=== PATIENT | male | born 1975 | race Native Hawaiian/Other Pacific Islander ===

== ENCOUNTER 2020-11-13 11:51 | Outpatient (CLI) | payer BC, OTHER ==
[~2020-11-13] VITALS: Ht 172.7 cm; Wt 96.2 kg
== END 2020-11-13 21:23 | disposition home or self-care (01) ==
LOC: INF 11:51
PROVIDERS: ATTEND Internal Medicine
DX: Z23 Encounter for immunization (principal); U07.1 COVID-19
CPT/HCPCS: 96365; 96366; M0244

== ENCOUNTER 2021-08-15 16:02 | Outpatient (CLI) | payer BC | END 2021-08-15 21:25 | disposition home or self-care (01) | LOC: RAD 16:02 | PROVIDERS: ATTEND Nurse Practitioner | DX: M25.512 Pain in left shoulder (principal) ==